=== PATIENT | male | born 1955 | race Caucasian/White ===

== ENCOUNTER 2016-12-01 12:58 | Inpatient (IN) | payer MEDICAID ==
[~2016-12-01] VITALS: Ht 180.3 cm; Wt 99.8 kg
[2016-12-01 12:58] VITALS: BP_SYST 125
[2016-12-01 13:25] LABS: EOSINOPHILS # (AUTO) 0.3 K/uL (0.0-0.4); HEMOGLOBIN 8.6 g/dL (14.0-18.0); LYMPHOCYTES # (AUTO) 0.4 K/uL (1.0-5.5); MEAN CORPUSCULAR HGB CONC 33 % (32-36); MEAN CORPUSCULAR VOLUME 86 fL (79.0-98.0); MONOCYTES # (AUTO) 0.3 K/uL (0.0-1.0); NEUTROPHILS # (AUTO) 3.6 K/uL (1.8-7.7); RED CELL DISTRIBUTION WIDTH 14.9 % (9.0-15.0); WHITE BLOOD COUNT (AUTO) 4.6 K/uL (4.8-10.8)
[2016-12-01 13:33] LABS: EOSINOPHILS % (AUTO) 5.9 % (0.0-4.0); HEMATOCRIT 25.8 % (36-54); MEAN CORPUSCULAR HEMOGLOBIN 29 pg (27-31); MONOCYTES % (AUTO) 6.3 % (1.7-9.3); NEUTROPHILS % (AUTO) 78.8 % (40.0-70.0); PLATELET COUNT (AUTO) 169 K/uL (130-430); RED BLOOD CELL COUNT(AUTO) 2.98 MIL/uL (4.2-6.2)
[2016-12-01 13:34] LABS: CALCIUM 8.3 mg/dL (8.4-11.0); CREATININE 2.92 mg/dL (0.55-1.30)
[2016-12-01 13:37] LABS: INR 1.6 (0.80-1.20); PROTHROMBIN TIME 17.2 SECS (9.5-12.5)
[2016-12-01 13:38] LABS: ALBUMIN 2.1 g/dL (3.4-4.8); TOTAL BILIRUBIN 2.3 mg/dL (0.0-1.0)
[2016-12-01] MEDS ORDERED: LACTULOSE 20 GM/30 ML UDC PO ONE (14:15)
[2016-12-01 15:07] VITALS: BP_SYST 133
[2016-12-01 15:28] VITALS: BP_SYST 133
[2016-12-01] MEDS ORDERED: LEVO100T9 PO (15:49)
[2016-12-01] MEDS ORDERED: OMEP40CA33 PO (15:49)
[2016-12-01] MEDS ORDERED: LACT10SO66 PO (15:49)
[2016-12-01] MEDS ORDERED: NADO20TA9 PO (15:49)
[2016-12-01] MEDS ORDERED: FURO-149 PO (15:49)
[2016-12-01 20:02] VITALS: BP_SYST 121
[2016-12-01] MEDS ORDERED: MORPHINE 2 MG/ML INJ. SYRINGE IVP PRN ×2 (21:45)
[2016-12-01] MEDS ORDERED: ONDANSETRON HCL 4 MG/2 ML VIAL IVP PRN (21:45)
[2016-12-01] MEDS: LACTULOSE 20 GM/30 ML UDC PO SCH (22:03)
[2016-12-01] MEDS: D5NS 1,000 ML IV SCH (22:17)
[2016-12-01 22:53] VITALS: BP_SYST 121
[2016-12-02] VITALS (8 sets, daily range): BP systolic 105–119
[2016-12-02 06:22] LABS: BASOPHILS % (AUTO) 1.3 % (0.0-2.0); EOSINOPHILS # (AUTO) 0.2 K/uL (0.0-0.4); EOSINOPHILS % (AUTO) 8.4 % (0.0-4.0); HEMATOCRIT 22.5 % (36-54); HEMOGLOBIN 7.5 g/dL (14.0-18.0); LYMPHOCYTES # (AUTO) 0.3 K/uL (1.0-5.5); LYMPHOCYTES % (AUTO) 10.3 % (20.5-51.5); MEAN CORPUSCULAR HEMOGLOBIN 29 pg (27-31); MEAN CORPUSCULAR HGB CONC 33 % (32-36); MEAN CORPUSCULAR VOLUME 86 fL (79.0-98.0); MONOCYTES # (AUTO) 0.3 K/uL (0.0-1.0); MONOCYTES % (AUTO) 9.3 % (1.7-9.3); NEUTROPHILS # (AUTO) 1.9 K/uL (1.8-7.7); PLATELET COUNT (AUTO) 121 K/uL (130-430); RED BLOOD CELL COUNT(AUTO) 2.61 MIL/uL (4.2-6.2); WHITE BLOOD COUNT (AUTO) 2.7 K/uL (4.8-10.8)
[2016-12-02] MEDS: D5NS 1,000 ML IV SCH (06:42)
[2016-12-02 06:52] LABS: ALBUMIN 1.8 g/dL (3.4-4.8); CREATININE 2.76 mg/dL (0.55-1.30); POTASSIUM 3.5 mmol/L (3.5-5.1); TOTAL BILIRUBIN 1.9 mg/dL (0.0-1.0)
[2016-12-02] MEDS: LACTULOSE 20 GM/30 ML UDC PO SCH ×3 (08:06→20:48)
[2016-12-02 08:45] LABS: NEUTROPHILS % (AUTO) 70.7 % (40.0-70.0)
[2016-12-02 12:38] LABS: TOTAL IRON BIND. CAPACITY 146 ug/dL (250-450)
[2016-12-02] MEDS ORDERED: PHYTONADIONE 10 MG/ML AMP SUBCUT ONE (15:15)
[2016-12-02 15:37] LABS: ALBUMIN 1.9 g/dL (3.4-4.8); BILIRUBIN,DIRECT 0.7 mg/dL (0.0-0.3); TOTAL BILIRUBIN 1.8 mg/dL (0.0-1.0)
[2016-12-02 16:59] LABS: BILIRUBIN,URINE NEGATIVE (NEGATIVE); BLOOD, URINE NEGATIVE (NEGATIVE); CLARITY/URINE CLEAR (CLEAR); COLOR,URINE YELLOW (YELLOW); GLUCOSE,URINE NEGATIVE (NEGATIVE); KETONES,URINE NEGATIVE (NEGATIVE); LEUKOCYTE ESTERASE ,URINE NEGATIVE (NEGATIVE); NITRITE, URINE NEGATIVE (NEGATIVE); PH,URINE 5.5 (5.0-8.0); PROTEIN URINE NEGATIVE (NEGATIVE); UROBILINOGEN,URINE 0.2 (0.2-1.0)
[2016-12-02] MEDS: FUROSEMIDE 40 MG TABLET PO SCH (20:49)
[2016-12-02] MEDS: METOPROLOL TARTRATE 25 MG TABLET PO SCH (20:50)
[2016-12-02 21:37] LABS: URINE SODIUM, RANDOM 3 mmol/L (40-220)
[2016-12-03] MEDS: D5NS 1,000 ML IV SCH (04:09)
[2016-12-03 04:29] VITALS: BP_SYST 118
[2016-12-03] MEDS: LEVOTHYROXINE SODIUM 0.1 MG TABLET PO SCH (06:23)
[2016-12-03 07:09] LABS: CALCIUM 7.9 mg/dL (8.4-11.0); CREATININE 2.27 mg/dL (0.55-1.30); POTASSIUM 3.2 mmol/L (3.5-5.1)
[2016-12-03 08:20] VITALS: BP_SYST 110
[2016-12-03] MEDS: FUROSEMIDE 40 MG TABLET PO SCH (08:45)
[2016-12-03] MEDS: PANTOPRAZOLE SODIUM 40 MG TAB PO SCH (08:45)
[2016-12-03] MEDS: LACTULOSE 20 GM/30 ML UDC PO SCH ×3 (08:46→20:55)
[2016-12-03] MEDS: METOPROLOL TARTRATE 25 MG TABLET PO SCH ×2 (08:46→20:55)
[2016-12-03] MEDS ORDERED: PANTOPRAZOLE GRANULES PACKET 40 MG GT SCH (09:00)
[2016-12-03] MEDS ORDERED: OMEPRAZOLE 20 MG CAPSULE.DR (PriLOSEC) PO SCH (09:00)
[2016-12-03] MEDS ORDERED: NADOLOL 20 MG TABLET(CORGARD) PO SCH (09:00)
[2016-12-03 12:32] VITALS: BP_SYST 122
[2016-12-03] MEDS ORDERED: POTASSIUM CHLORIDE 20 MEQ/PKT PACKET PO ONE (14:00)
[2016-12-03] MEDS ORDERED: POTASSIUM CHLORIDE 20 MEQ TAB.PRT.SR PO ONE (14:45)
[2016-12-03 14:52] LABS: BF APPEARANCE UNSPUN CLOUDY (CLEAR); BODY FLUID COLOR PINK (LT YELLOW); BODY FLUID SOURCE/ TYPE PERITONEAL; BODY FLUID TOTAL VOLUME 1100 mL; WBC, BODY FLUID 300 /uL
[2016-12-03 14:53] LABS: NEUTROPHIL, BODY FLUID 5 %; RBC, BODY FLUID 2750 /uL
[2016-12-03 14:54] LABS: LYMPHOCYTES, BODY FLUID 95 %
[2016-12-03 16:02] LABS: BASOPHILS # (AUTO) 0.1 K/uL (0.0-0.2); BASOPHILS % (AUTO) 1.3 % (0.0-2.0); EOSINOPHILS # (AUTO) 0.2 K/uL (0.0-0.4); HEMATOCRIT 23.7 % (36-54); HEMOGLOBIN 7.7 g/dL (14.0-18.0); LYMPHOCYTES # (AUTO) 0.5 K/uL (1.0-5.5); LYMPHOCYTES % (AUTO) 11.9 % (20.5-51.5); MEAN CORPUSCULAR HEMOGLOBIN 28 pg (27-31); MEAN CORPUSCULAR HGB CONC 33 % (32-36); MEAN CORPUSCULAR VOLUME 86 fL (79.0-98.0); MONOCYTES # (AUTO) 0.5 K/uL (0.0-1.0); MONOCYTES % (AUTO) 11.7 % (1.7-9.3); NEUTROPHILS # (AUTO) 2.6 K/uL (1.8-7.7); NEUTROPHILS % (AUTO) 69.1 % (40.0-70.0); RED BLOOD CELL COUNT(AUTO) 2.75 MIL/uL (4.2-6.2); RED CELL DISTRIBUTION WIDTH 15.1 % (9.0-15.0)
[2016-12-03 16:07] LABS: PLATELET COUNT (AUTO) 137 K/uL (130-430); WHITE BLOOD COUNT (AUTO) 3.9 K/uL (4.8-10.8)
[2016-12-03 16:24] LABS: BODY FLUID GLUCOSE 135 mg/dL; BODY FLUID TOTAL PROTEIN 1.1 g/dL
[2016-12-03 18:55] VITALS: BP_SYST 108
[2016-12-03 19:45] VITALS: BP_SYST 125
[2016-12-04] VITALS (7 sets, daily range): BP systolic 99–134
[2016-12-04] MEDS: LEVOTHYROXINE SODIUM 0.1 MG TABLET PO SCH (06:16)
[2016-12-04 07:56] LABS: BASOPHILS % (AUTO) 1.3 % (0.0-2.0); EOSINOPHILS # (AUTO) 0.3 K/uL (0.0-0.4); HEMATOCRIT 26.4 % (36-54); LYMPHOCYTES # (AUTO) 0.6 K/uL (1.0-5.5); LYMPHOCYTES % (AUTO) 16.8 % (20.5-51.5); MEAN CORPUSCULAR HEMOGLOBIN 30 pg (27-31); MEAN CORPUSCULAR HGB CONC 34 % (32-36); MEAN CORPUSCULAR VOLUME 86 fL (79.0-98.0); MONOCYTES # (AUTO) 0.5 K/uL (0.0-1.0); MONOCYTES % (AUTO) 12.3 % (1.7-9.3); NEUTROPHILS # (AUTO) 2.3 K/uL (1.8-7.7); NEUTROPHILS % (AUTO) 62.6 % (40.0-70.0); PLATELET COUNT (AUTO) 120 K/uL (130-430); RED BLOOD CELL COUNT(AUTO) 3.06 MIL/uL (4.2-6.2); RED CELL DISTRIBUTION WIDTH 15.3 % (9.0-15.0); WHITE BLOOD COUNT (AUTO) 3.7 K/uL (4.8-10.8)
[2016-12-04] MEDS: PANTOPRAZOLE SODIUM 40 MG TAB PO SCH (08:22)
[2016-12-04] MEDS: LACTULOSE 20 GM/30 ML UDC PO SCH ×2 (08:22→15:00)
[2016-12-04] MEDS: METOPROLOL TARTRATE 25 MG TABLET PO SCH (08:23)
[2016-12-04 08:48] LABS: CALCIUM 7.4 mg/dL (8.4-11.0); CREATININE 1.88 mg/dL (0.55-1.30); POTASSIUM 3.3 mmol/L (3.5-5.1)
[2016-12-04 09:20] LABS: ALBUMIN 1.8 g/dL (3.4-4.8); TOTAL BILIRUBIN 4.2 mg/dL (0.0-1.0)
[2016-12-04 10:22] LABS: SOURCE/TYPE ,BODY FLUID PERITONEAL
[2016-12-04] MEDS ORDERED: POTASSIUM CHLORIDE 20 MEQ TAB.PRT.SR PO ONE (10:30)
[2016-12-04 15:46] LABS: ALBUMIN 1.7 g/dL (3.4-4.8); CALCIUM 7.6 mg/dL (8.4-11.0); CREATININE 1.84 mg/dL (0.55-1.30); POTASSIUM 3.6 mmol/L (3.5-5.1)
[2016-12-04] MEDS ORDERED: RIFAXIMIN 550 MG TABLET PO SCH (21:00)
[2016-12-05 14:07] LABS: ALBUMIN,BODY FLUID 0.4 g/dL (.)
== END 2016-12-04 20:50 | DRG 279 ==
LOC: SED 12:58 → SMU 14:45
PROVIDERS: ADMIT Internal Medicine Hospice and Palliative Medicine; ATTEND Internal Medicine Hospice and Palliative Medicine
PROC: 0W9G3ZZ Drainage of Peritoneal Cavity, Percutaneous Approach (ICD-10-PCS; 2016-12-02)
PROC: 30233N1 Transfusion of Nonautologous Red Blood Cells into Peripheral Vein, Percutaneous Approach (ICD-10-PCS; principal; 2016-12-03)
DX: K72.90 Hepatic failure, unspecified without coma (principal); N17.9 Acute kidney failure, unspecified; D68.9 Coagulation defect, unspecified; D69.6 Thrombocytopenia, unspecified; E03.9 Hypothyroidism, unspecified; N18.9 Chronic kidney disease, unspecified; D72.819 Decreased white blood cell count, unspecified; D64.9 Anemia, unspecified; K70.31 Alcoholic cirrhosis of liver with ascites; Z79.899 Other long term (current) drug therapy; Z88.0 Allergy status to penicillin
CPT/HCPCS: 36415; 49083; 71010; 76700-TC; 80048; 80053; 80076; 81003; 82042; 82105; 82140-TC; 82150; 82272; 82570-TC; 82947-TC; 83540-TC; 83550-TC; 83605; 83880; 84157-TC; 84302-TC; 84484; 85025; 85610-TC; 85730-TC; 86886; 86900; 86901; 86920; 87040-TC; 87070-TC; 87081; 88108; 88305; 89051-TC; 89060-TC; 93005; 99285; C1729; J3430; J7042; J7050; P9021